=== PATIENT | female | born 1955 | race African-American/Black ===

== ENCOUNTER 2018-12-30 12:49 | Emergency (ER) | payer OTHER ==
[2018-12-30 13:25] VITALS: BP 115/74; PULSE 67; TEMP 98; BMI 30.7
[2018-12-30] MEDS ORDERED: GLYCERIN 1 RECTAL SUPPOSITORY, ADULT PR ONE (13:52)
--- NOTE | 2018-12-30 13:54 | PDOC ---
History of Present Illness - General Chief Complaint: Constipation Stated Complaint: CONSTIPATION Time Seen by Provider: 12/30/18 13:47 - History of Present Illness Initial Comments: 12/30/18 13:52 63-year-old female with a past medical history significant for hypertension and dyslipidemia presents for evaluation of constipation. She states her last bowel movement was 5 days ago. She's had typical episodes of constipation in the past usually relieved with Colace however this episode has not been relieved and she is eating taken MiraLAX. No systemic symptoms. Past History - Past Medical History Allergies/Adverse Reactions: Allergies Allergy/AdvReac Type Severity Reaction Status Date / Time No Known Allergies Allergy Verified 12/30/18 13:22 Home Medications: Ambulatory Orders NK [No Known Home Medication] 12/30/18 COPD: No HTN: Yes Hypercholesterolemia: Yes - Immunization History Immunization Up to Date: Yes - Suicide/Smoking/Psychosocial Hx Smoking History: Current every day smoker Number of Cigarettes Smoked Daily: 10 Information on smoking cessation initiated: No Hx Alcohol Use: No Drug/Substance Use Hx: No Review of Systems - Review of Systems Constitutional: No: Fever ABD/GI: Yes: Constipated *Physical Exam - Vital Signs Last Vital Signs Temp Pulse Resp BP Pulse Ox 98.0 F 67 18 115/74 100 12/30/18 13:22 12/30/18 13:22 12/30/18 13:22 12/30/18 13:22 12/30/18 13:22 - Physical Exam Comments: 12/30/18 13:53 HEAD: NC/AT EYES: Conjuntiva clear Ears: Canals and TM's normal NOSE: No d/c THROAT: Moist mucous membrances, oral pharanx clear, uvula midline NECK: Supple without adenopathy CARDIAC: S1 S2 LUNGS: CTA Full and Equal breath sounds ABDOMEN: Soft nondistended nontympanitic, mild left-sided tenderness without guarding or rebound. MS: Full ROM in all joints without edema NEUROLOGIC: No gross sensory or motor deficits, NVID SKIN: Normal color and temperature no lesions or rashes Moderate Sedation - Procedure Monitoring Vital Signs: Procedure Monitoring Vital Signs Temperature 98.0 F 12/30/18 13:22 Pulse Rate 67 12/30/18 13:22 Respiratory Rate 18 12/30/18 13:22 Blood Pressure 115/74 12/30/18 13:22 O2 Sat by Pulse Oximetry (%) 100 03/13/19 13:22 *DC/Admit/Observation/Transfer Diagnosis at time of Disposition: CN (constipation) - Discharge Dispostion Disposition: ELOPED - Referrals Referrals: Yesica Lawson MD [Primary Care Provider] - - Patient Instructions - Post Discharge Activity
== END 2018-12-30 14:47 | disposition left against medical advice (07) ==
LOC: JERFT 12:49
DX: K59.00 Constipation, unspecified (principal); I10 Essential (primary) hypertension; E78.5 Hyperlipidemia, unspecified
CPT/HCPCS: 99281-25

== ENCOUNTER → 2023-11-20 | Day surgery (SDC) | payer OTHER | END | disposition home or self-care (01) | LOC: FMAMMOTONE 10:06 | PROVIDERS: ATTEND Student in an Organized Health Care Education/Training Program | PROC: 0HBT3ZX Excision of Right Breast, Percutaneous Approach, Diagnostic (ICD-10-PCS; principal; 2023-11-20) | DX: D25.1 Intramural leiomyoma of uterus (principal); N64.89 Other specified disorders of breast; N60.81 Other benign mammary dysplasias of right breast; R92.1 Mammographic calcification found on diagnostic imaging of breast | CPT/HCPCS: 19081; 19082; 76098-TC-FY; 87899; 88305-TC; A4648 ==